=== PATIENT | female | born 1930 | race African-American/Black ===

== ENCOUNTER 2017-08-21 12:38 | Emergency (ER) | payer MEDICARE, BC ==
[~2017-08-21] VITALS: Wt 68.3 kg
[~2017-08-21 12:38] MED LIST: ADV25050 INHALATION; ALBU8.5H3 INH; ATOR40TA68 PO; CLOP75TA27 PO; DILT180C75 PO; EZET10TA3 PO; FERR-55 PO; LORA-441 PO; MULT-552 PO; NEBI5TAB9 PO; POTA-57 PO; POTA20TA81 PO; VALS1TAB80 PO
--- NOTE | 2017-08-21 15:55 | RADRPT ---
PROCEDURE: XR Foot. CLINICAL INDICATION: Generalized pain. TECHNIQUE: Left foot, three views. COMPARISON: None. FINDINGS: Bone mineralization appears decreased. There is no acute fracture or dislocation. Osseous alignment appears maintained. Os peroneum noted. There is mild degenerative changes of the first metatarsal phalangeal joint. There is soft tissue edema about the foot. IMPRESSION: 1. Osteopenia. No acute fracture or dislocation of the left foot. RPTAT: AAEE Lexis Sinclair Physician Date Time Electronically viewed and signed by Lexis Sinclair Physician on 08/21/2017 15:54 PH/
--- NOTE | 2017-08-21 16:22 | ERD ---
ER Documentation Chief Complaint Chief Complaint LEFT FOOT PAIN 2 WEEKS, NO INJURY HPI This 87-year-old female complains of left foot pain for last 2 weeks. The pain started after she is on a plane flight and had a hard landing. She was not standing. Patient is usually confined to a wheelchair but is able to transfer using the restroom and dressing herself. She has a history of left hemiparesis and uses a posterior brace for foot drop. The bleeding or redness of the skin. The pain is on the lateral aspect of the distal fifth metatarsal. ROS All systems reviewed and are negative except as per history of present illness. Medications Home Meds Reported Medications Salmeterol Xinaf/Fluticasone* (Advair*) 250-50 Diskus Inhaler, 1 INH INHALATION BID, #1 INHALER 10/28/15 Albuterol Sulfate* (Proair HFA*) 8.5 Gm Hfa.aer.ad, 2 PUFF INH Q4, #1 INHALER 10/28/15 Lorazepam* (Ativan*) 0.5 Mg Tablet, 0.5 MG PO HS Y for ANXIETY, #30 TAB 10/28/15 Multivitamins* (Once Daily*) 1 Tab Tablet, 1 TAB PO DAILY, TAB 10/28/15 Ferrous Sulfate* (Ferrous Sulfate*) 325 Mg Tablet, 325 MG PO DAILY, TAB 10/28/15 Atorvastatin* (Atorvastatin*) 40 Mg Tablet, 40 MG PO QHS, #30 TAB 10/28/15 Diltiazem Hcl* (Cardizem CD*) 180 Mg Cap.sr.24h, 180 MG PO DAILY, #30 CAP 10/28/15 Clopidogrel Bisulfate (Clopidogrel) 75 Mg Tablet, 75 MG PO DAILY, #30 TAB 10/28/15 Potassium Chloride* (Klor-Con*) 20 Meq Tabsr, 30 MEQ PO HS, TAB.SA 10/28/15 Potassium Chloride (Klor-Con M20) 20 Meq Tab.prt.sr, 20 MEQ PO 10/28/15 Valsartan-Hydrochlorothiazide (Valsartan-HCTZ) 320-12.5 Mg Tablet, 1 TAB PO DAILY, #30 TAB 10/28/15 Nebivolol* (Bystolic*) 5 Mg Tab, 5 MG PO DAILY, #30 TAB 10/28/15 Ezetimibe* (Zetia*) 10 Mg Tablet, 10 MG PO DAILY, TAB 10/28/15 Allergies Allergies: Coded Allergies: No Known Drug Allergies (Verified Allergy, Unknown, 10/28/15) PMhx/Soc History of Surgery: Yes (breast ca 2012) Anesthesia Reaction: No Hx Neurological Disorder: Yes Hx Respiratory Disorders: Yes (ashtma) Hx Cardiac Disorders: Yes Hx Psychiatric Problems: No Hx Miscellaneous Medical Probl: Yes (gastritis w/erosions, sigmd diverticulosis ) Hx Alcohol Use: No Hx Substance Use: No Hx Tobacco Use: No Physical Exam Vitals Vital Signs Date Time Temp Pulse Resp B/P Pulse Ox O2 Delivery O2 Flow Rate FiO2 08/21/17 12:41 99.2 81 17 171/84 98 Physical Exam Const: [] There are, [id number], pleasant. Head: Atraumatic Eyes: Normal Conjunctiva ENT: Normal External Ears, Nose and Mouth. Neck: Full range of motion..~ No meningismus. Resp: Clear to auscultation bilaterally Cardio: Regular rate and rhythm, no murmurs Abd: Soft, non tender, non distended. Normal bowel sounds Skin: No petechiae or rashes Back: No midline or flank tenderness Ext: No cyanosis, or edema tenderness distally on the left fifth metatarsal. No erythema, warmth, bleeding or deformities. CAP Refill is less than 2 seconds and no appreciable deficits. Neur: Awake and alert Psych: Normal Mood and Affect Procedures/MDM X-ray left foot 3V Interpreted by me: Bones: [No fracture] Joints: [No dislocation] Foreign body: [None] impression-osteopenia without fracture dislocation. Patient presents with left foot pain after minimal trauma 2 weeks ago without evidence of cellulitis, fracture, dislocation, ischemia or deficits. She may have a contusion. She will be discharged home with orthopedic and primary care follow-up and return precautions for redness, fevers, new worsening symptoms. She should return sooner for worsening redness, fevers, new worsening symptoms or primary care doctor and orthopedist as directed. The patient was stable with no new complaints during the ER course. Clinically, there is no current evidence to suggest meningitis, sepsis, acute abdomen, pneumonia, acute coronary syndrome, pulmonary embolism, or any other emergent condition appearing to require further evaluation or hospitalization. The patient should certainly return for any new or worsening symptoms per the aftercare instructions. They should otherwise follow-up with her primary care doctor for reevaluation this week. Departure Diagnosis: Primary Impression: Injury of foot Encounter type: initial encounter Laterality: left Qualified Code: S99.922A - Injury of left foot, initial encounter Condition: Stable Patient Instructions: Contusion, Foot Referrals: MELISSA CALHOUN MD Additional Instructions: X-ray read as normal. Likely contusion. See primary doctor and orthopedist for pain next week. Recheck sooner for fevers, redness, new symptoms. KAMILAH ALMANZAR MD Aug 21, 2017 16:22
== END 2017-08-21 16:47 | disposition home or self-care (01) ==
LOC: FTE 12:38
DX: S99.922A Unspecified injury of left foot, initial encounter (principal); J45.909 Unspecified asthma, uncomplicated; X58.XXXA Exposure to other specified factors, initial encounter; Y92.9 Unspecified place or not applicable; Z85.3 Personal history of malignant neoplasm of breast

== ENCOUNTER 2018-11-12 20:31 | Emergency (ER) | payer BC, MEDICARE, OTHER ==
[~2018-11-12] VITALS: Ht 149.9 cm; Wt 64.6 kg
[~2018-11-12 20:31] MED LIST changes: -ALBU8.5H3 INH; +ALBU8.5H8 INH; +DILT180C72 PO; -DILT180C75 PO; -EZET10TA3 PO; +EZET10TA31 PO; -POTA20TA81 PO; +POTA20TA9 PO
[2018-11-12 21:28] VITALS: Ht 149.9 cm; Wt 64.6 kg
[2018-11-12] MEDS ORDERED: SOD CHLORIDE 0.9% 500 ML IV STA (22:51)
--- NOTE | 2018-11-12 23:47 | ERD ---
ER Documentation Chief Complaint Chief Complaint weakness & abnormal BMs, hypertensive, too; hx hernias,CA,CVA HPI 88-year-old female with a history of hypertension and stroke presenting to the ER complaining of abnormal bowel movements for the past few days. She states that her bowel movements are loose. She is having it once a day. Mckeon colored. No associated abdominal pain, nausea, vomiting, yellowing of skin, or change in urination or urine color. She otherwise feels well without fevers or chills. She was just concerned about the loose stools so that is why she is here today. ROS All systems reviewed and are negative except as per history of present illness. Medications Home Meds Reported Medications Salmeterol Xinaf/Fluticasone* (Advair*) 250-50 Diskus Inhaler, 1 INH INHALATION BID, #1 INHALER 10/28/15 Albuterol Sulfate* (Proair HFA*) 8.5 Gm Hfa.aer.ad, 2 PUFF INH Q4, #1 INHALER 10/28/15 Lorazepam* (Ativan*) 0.5 Mg Tablet, 0.5 MG PO HS PRN for ANXIETY, #30 TAB 10/28/15 Multivitamins* (Once Daily*) 1 Tab Tablet, 1 TAB PO DAILY, TAB 10/28/15 Ferrous Sulfate* (Ferrous Sulfate*) 325 Mg Tablet, 325 MG PO DAILY, TAB 10/28/15 Atorvastatin* (Atorvastatin*) 40 Mg Tablet, 40 MG PO QHS, #30 TAB 10/28/15 Diltiazem Hcl* (Cardizem CD*) 180 Mg Cap.sr.24h, 180 MG PO DAILY, #30 CAP 10/28/15 Clopidogrel Bisulfate (Clopidogrel) 75 Mg Tablet, 75 MG PO DAILY, #30 TAB 10/28/15 Potassium Chloride* (Klor-Con*) 20 Meq Tabsr, 30 MEQ PO HS, TAB.SA 10/28/15 Potassium Chloride (Klor-Con M20) 20 Meq Tab.prt.sr, 20 MEQ PO 10/28/15 Valsartan-Hydrochlorothiazide (Valsartan-HCTZ) 320-12.5 Mg Tablet, 1 TAB PO DAILY, #30 TAB 10/28/15 Nebivolol* (Bystolic*) 5 Mg Tab, 5 MG PO DAILY, #30 TAB 10/28/15 Ezetimibe* (Zetia*) 10 Mg Tablet, 10 MG PO DAILY, TAB 10/28/15 Allergies Allergies: Coded Allergies: No Known Drug Allergies (Verified Allergy, Unknown, 10/28/15) PMhx/Soc History of Surgery: Yes (breast ca 2013, hysterectomy) Anesthesia Reaction: No Hx Neurological Disorder: Yes Hx Respiratory Disorders: Yes (asthma) Hx Cardiac Disorders: Yes (htn, CAD) Hx Psychiatric Problems: No Hx Miscellaneous Medical Probl: Yes (gastritis w/erosions, sigmd diverticulosis) Hx Alcohol Use: No Hx Substance Use: No Hx Tobacco Use: No Smoking Status: Never smoker FmHx Family History: No diabetes Physical Exam Vitals Vital Signs Date Temp Pulse Resp B/P (MAP) Pulse Ox O2 O2 Flow FiO2 Time Delivery Rate 11/12/18 98.8 97 18 199/97 96 21:28 (131) Physical Exam Const: No acute distress, well-appearing, nontoxic Head: Atraumatic Eyes: Normal Conjunctiva, no scleral icterus ENT: Normal External Ears, Nose and Mouth. Neck: Full range of motion. No meningismus. Resp: Clear to auscultation bilaterally Cardio: Regular rate and rhythm, no murmurs Abd: Soft, non tender, non distended. No rebound or guarding. No masses. No hepatosplenomegaly. Normal bowel sounds Skin: No jaundice. No petechiae or rashes Back: No midline or flank tenderness Ext: No cyanosis, or edema Neur: Awake and alert Psych: Normal Mood and Affect Result Diagram: 11/12/186 11/12/18 2226 Results 24 hrs Laboratory Tests Test 11/12/18 22:26 White Blood Count 9.8 10^3/ul Red Blood Count 4.60 10^6/ul Hemoglobin 14.6 g/dl Hematocrit 44.8 % Mean Corpuscular Volume 97.4 fl Mean Corpuscular Hemoglobin 31.7 pg Mean Corpuscular Hemoglobin Concent 32.6 g/dl Red Cell Distribution Width 14.1 % Platelet Count 286 10^3/UL Mean Platelet Volume 10.1 fl Immature Granulocytes % 0.600 % Neutrophils % 83.5 % Lymphocytes % 8.3 % Monocytes % 6.1 % Eosinophils % 1.1 % Basophils % 0.4 % Nucleated Red Blood Cells % 0.0 /100WBC Immature Granulocytes # 0.060 10^3/ul Neutrophils # 8.2 10^3/ul Lymphocytes # 0.8 10^3/ul Monocytes # 0.6 10^3/ul Eosinophils # 0.1 10^3/ul Basophils # 0.0 10^3/ul Nucleated Red Blood Cells # 0.0 10^3/ul Sodium Level 144 mmol/L Potassium Level 4.4 mmol/L Chloride Level 108 mmol/L Carbon Dioxide Level 24 mmol/L Anion Gap 12 Blood Urea Nitrogen 19 mg/dl Creatinine 1.14 mg/dl Est Glomerular Filtrat Rate mL/min mL/min Glucose Level 124 mg/dl Calcium Level 9.9 mg/dl Total Bilirubin 0.1 mg/dl Direct Bilirubin 0.00 mg/dl Indirect Bilirubin 0.1 mg/dl Aspartate Amino Transf (AST/SGOT) 26 IU/L Alanine Aminotransferase (ALT/SGPT) 18 IU/L Alkaline Phosphatase 110 IU/L Total Protein 7.4 g/dl Albumin 4.2 g/dl Globulin 3.20 g/dl Albumin/Globulin Ratio 1.31 Lipase 99 U/L Current Medications Medications Dose Sig/Sarwat Start Time Status Last (Trade) Ordered Route PRN Stop Time Admin Dose Reason Admin Sodium 500 ml @ Q1H STAT 11/12/18 11/12/18 Chloride 500 mls/hr IV 22:51 23:25 11/12/18 23:50 Procedures/MDM EMERGENT LABS AND DIAGNOSTIC STUDIES: Lab Results above were reviewed and interpreted by me. CBC: no anemia or evidence of infection CMP: Mild creatinine elevation, no evidence of electrolyte abnormality, renal failure, hypoglycemia, liver failure, or biliary obstruction Lipase: no evidence of pancreatitis Initial Nursing notes reviewed. Previous Medical Records requested via the Electronic Health Record. EMERGENCY DEPARTMENT COURSE / MEDICAL DECISION MAKING: Patient is presenting with loose stools that are mckeon in color. Vitals are stable. She was initially hypertensive when she arrived but her hypertension improved without intervention. As she does not have any pain on exam, initially labs were done and did not show any evidence of liver failure, liver disease, biliary obstruction, or pancreatitis. I feel the patient does not require imaging at this time as she is completely asymptomatic otherwise. I recommended she start using fiber supplements daily. If her symptoms do not improve or continue, I recommended follow-up with her primary care doctor within the next week. Return precautions were discussed. She was encouraged to return for any worsening symptoms. Patient's blood pressure was elevated (>120/80) but appears stable without evidence of hypertensive emergency or urgency. The patient was counseled about the risks of hypertension and urged to pursue outpatient monitoring and therapy within a week with their primary care physician. Departure Diagnosis: Primary Impression: Loose stools Condition: Stable Patient Instructions: Diarrhea, Unk Cause (Adult) Report Pendg Additional Instructions: Make an appointment with your primary care doctor within the next 3 days. If any of your symptoms worsen, return to the ER for reevaluation. MORTEZA RODRIGUEZ MD Nov 12, 2018 23:47
[2018-11-12 23:50] VITALS: BP 155/88; PULSE 73; RESP 18
== END 2018-11-12 23:50 | disposition home or self-care (01) ==
LOC: E/R 20:31
DX: R19.7 Diarrhea, unspecified (principal); R40.2142 Coma scale, eyes open, spontaneous, at arrival to emergency department; R40.2362 Coma scale, best motor response, obeys commands, at arrival to emergency department; R40.2252 Coma scale, best verbal response, oriented, at arrival to emergency department; I10 Essential (primary) hypertension; I25.10 Atherosclerotic heart disease of native coronary artery without angina pectoris; J45.909 Unspecified asthma, uncomplicated; Z85.3 Personal history of malignant neoplasm of breast
CPT/HCPCS: 80053; 83690; 85025; 99284; J7040

== ENCOUNTER 2018-11-18 08:24 | Emergency (ER) | payer BC, MEDICARE ==
[~2018-11-18] VITALS: Ht 157.5 cm; Wt 64.6 kg
[~2018-11-18 08:24] MED LIST changes: -FERR-55 PO
[2018-11-18 08:31] VITALS: Ht 157.5 cm; Wt 64.6 kg
[2018-11-18] MEDS ORDERED: NEBI5TAB9 PO (09:16)
[2018-11-18] MEDS ORDERED: VALS1TAB82 PO (09:16)
[2018-11-18] MEDS ORDERED: HYDR-3672 PO (09:16)
[2018-11-18] MEDS ORDERED: LANS30CA47 PO (09:18)
[2018-11-18] MEDS ORDERED: MULTI PO (09:18)
[2018-11-18] MEDS ORDERED: MAGN400T28 PO (09:18)
--- NOTE | 2018-11-18 10:52 | ERD ---
ER Documentation Chief Complaint Chief Complaint C/O ABD. PAIN ON AND OFF FOR 3 WEEKS; SEEN HERE ON THURSDAY FOR SAME HPI This is a 88-year-old female presents to the emergency room for evaluation of intermittent abdominal pain. The patient states that her abdominal pain has been on and off for the past 3 weeks. She states that she was seen here in the hospital earlier this week and was had diarrhea and was evaluated and discharged home. She states that she does have some intermittent abdominal pain located in the midportion of the abdomen with no radiation and no associated nausea, vomiting, chest pain, shortness of breath or diaphoresis. ROS All systems reviewed and are negative except as per history of present illness. Medications Home Meds Reported Medications Multivitamins* (Theragran*) 1 Tab Tab, 1 TAB PO DAILY, TAB 11/18/18 Magnesium Oxide* (Magnesium Oxide*) 400 Mg Tablet, 400 MG PO BID, TAB 11/18/18 Lansoprazole* (Prevacid*) 30 Mg Capsule.dr, 30 MG PO BID, CAP 11/18/18 Nebivolol* (Bystolic*) 5 Mg Tab, 5 MG PO BID, #30 TAB 11/18/18 Hydralazine Hcl* (Hydralazine Hcl*) 50 Mg Tab, 100 MG PO BID, #180 TAB 11/18/18 Valsartan-Hydrochlorothiazide (Valsartan-HCTZ) 320-25 Mg Tablet, 1 TAB PO DAILY, #30 TAB 11/18/18 Salmeterol Xinaf/Fluticasone* (Advair*) 250-50 Diskus Inhaler, 1 INH INHALATION BID, #1 INHALER 10/28/15 Albuterol Sulfate* (Proair HFA*) 8.5 Gm Hfa.aer.ad, 2 PUFF INH Q4, #1 INHALER 10/28/15 Lorazepam* (Ativan*) 0.5 Mg Tablet, 0.5 MG PO HS PRN for ANXIETY, #30 TAB 10/28/15 Multivitamins* (Once Daily*) 1 Tab Tablet, 1 TAB PO DAILY, TAB 10/28/15 Atorvastatin* (Atorvastatin*) 40 Mg Tablet, 40 MG PO QHS, #30 TAB 10/28/15 Diltiazem Hcl* (Cardizem CD*) 180 Mg Cap.sr.24h, 180 MG PO DAILY, #30 CAP 10/28/15 Clopidogrel Bisulfate (Clopidogrel) 75 Mg Tablet, 75 MG PO DAILY, #30 TAB 10/28/15 Potassium Chloride* (Klor-Con*) 20 Meq Tabsr, 30 MEQ PO HS, TAB.SA 10/28/15 Potassium Chloride (Klor-Con M20) 20 Meq Tab.prt.sr, 20 MEQ PO 10/28/15 Ezetimibe* (Zetia*) 10 Mg Tablet, 10 MG PO DAILY, TAB 10/28/15 Discontinued Reported Medications Valsartan-Hydrochlorothiazide (Valsartan-HCTZ) 320-12.5 Mg Tablet, 1 TAB PO DAILY, #30 TAB 10/28/15 Nebivolol* (Bystolic*) 5 Mg Tab, 5 MG PO DAILY, #30 TAB 10/28/15 Ferrous Sulfate* (Ferrous Sulfate*) 325 Mg Tablet, 325 MG PO DAILY, TAB 10/28/15 Allergies Allergies: Coded Allergies: No Known Drug Allergies (Verified Allergy, Unknown, 10/28/15) PMhx/Soc History of Surgery: Yes (breast ca 2013, hysterectomy) Anesthesia Reaction: No 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) Hx Respiratory Disorders: Yes (asthma, COPD) Hx Cardiac Disorders: Yes (htn, CAD) Hx Psychiatric Problems: No Hx Miscellaneous Medical Probl: Yes (gastritis w/erosions, sigmd diverticulosis) Hx Alcohol Use: No Hx Substance Use: No Hx Tobacco Use: No Smoking Status: Unknown if ever smoked Physical Exam Vitals Vital Signs Date Temp Pulse Resp B/P (MAP) Pulse Ox O2 O2 Flow FiO2 Time Delivery Rate 11/18/18 97.6 80 18 173/80 95 08:31 (111) Physical Exam INITIAL VITAL SIGNS: Reviewed by me GENERAL: The patient is well developed and appropriate for usual state of health in no apparent distress HEENT: Pupils equal, round, and reactive to light. EOMI. There is no scleral icterus. NECK: C-spine is soft and supple, there is no meningismus. There is no cervical lymphadenopathy. LUNGS: Clear to auscultation bilaterally. There are no rales, wheezes or rhonchi. HEART: Regular rate and rhythm, no murmurs, clicks, rubs or gallops. ABDOMEN: Soft, non-tender, non-distended. There are bowel sounds in all four quadrants. No rebound or guarding. EXTREMITIES: There is no peripheral cyanosis or edema. No focal swelling or erythema. NEUROLOGICAL: The patient moves all four extremities with 5/5 strength. Cranial nerves II - XII are intact. Normal gait. Alert and oriented SKIN: There is no apparent rash or petechiae. HEME/LYMPHATIC: There is no evidence of excessive bruising or lymphedema. PSYCHIATRIC: The patient does not appear anxious or depressed. Result Diagram: 11/18/1891211/18/18912 Results 24 hrs Laboratory Tests Test 11/18/18 09:13 White Blood Count 8.5 10^3/ul Red Blood Count 4.47 10^6/ul Hemoglobin 14.3 g/dl Hematocrit 43.3 % Mean Corpuscular Volume 96.9 fl Mean Corpuscular Hemoglobin 32.0 pg Mean Corpuscular Hemoglobin Concent 33.0 g/dl Red Cell Distribution Width 13.9 % Platelet Count 265 10^3/UL Mean Platelet Volume 9.9 fl Immature Granulocytes % 0.400 % Neutrophils % 83.1 % Lymphocytes % 7.0 % Monocytes % 7.7 % Eosinophils % 1.4 % Basophils % 0.4 % Nucleated Red Blood Cells % 0.0 /100WBC Immature Granulocytes # 0.030 10^3/ul Neutrophils # 7.1 10^3/ul Lymphocytes # 0.6 10^3/ul Monocytes # 0.7 10^3/ul Eosinophils # 0.1 10^3/ul Basophils # 0.0 10^3/ul Nucleated Red Blood Cells # 0.0 10^3/ul Sodium Level 145 mmol/L Potassium Level 4.2 mmol/L Chloride Level 108 mmol/L Carbon Dioxide Level 29 mmol/L Anion Gap 8 Blood Urea Nitrogen 19 mg/dl Creatinine 1.17 mg/dl Est Glomerular Filtrat Rate mL/min mL/min Glucose Level 126 mg/dl Calcium Level 10.0 mg/dl Total Bilirubin 0.1 mg/dl Direct Bilirubin 0.00 mg/dl Indirect Bilirubin 0.1 mg/dl Aspartate Amino Transf (AST/SGOT) 24 IU/L Alanine Aminotransferase (ALT/SGPT) 21 IU/L Alkaline Phosphatase 122 IU/L Total Protein 7.0 g/dl Albumin 4.1 g/dl Globulin 2.90 g/dl Albumin/Globulin Ratio 1.41 Lipase 84 U/L Procedures/MDM This 88-year-old female presents to the emergency room for evaluation of intermittent abdominal pain. On my exam the patient is afebrile, nontoxic-appearing, hemodynamically stable. This patient had lab work on her lab work is normal. Her abdominal exam is soft and benign. She is got bowel sounds in all 4 quadrants. The patient's lab work is within normal at this time and given her nonfocal examination I do not feel the need to images patient. The patient states she is feeling better and would like to go home. I have advised her that she continues to have abdominal pain she is to return immediately to the emergency room for a CAT scan and admission. She states she will do that, states that she also has a family court registrar Dr. Smith that she follows up with. Differential diagnoses entertained was broad with potential high acuity. Patient has been evaluated for appendicitis, cholecystitis, and other high risk medical and surgical causes of abdominal pain. Ultimately the patient's evaluation is nondiagnostic. Based on the patient's lack of risk factors, as well as the patient's clinical, laboratory, and imaging data, the patient appears to be low risk for these high risk causes of abdominal pain. Departure Diagnosis: Primary Impression: Abdominal pain Additional Impression: Renal insufficiency Condition: Stable YANETH DAWN DO Nov 18, 2018 10:52
[2018-11-18 12:17] VITALS: BP 129/62; PULSE 65; RESP 18
== END 2018-11-18 12:20 | disposition home or self-care (01) ==
LOC: E/R 08:24
DX: R10.9 Unspecified abdominal pain (principal); I10 Essential (primary) hypertension; I25.10 Atherosclerotic heart disease of native coronary artery without angina pectoris; N28.9 Disorder of kidney and ureter, unspecified; Z86.73 Personal history of transient ischemic attack (TIA), and cerebral infarction without residual deficits; Z79.01 Long term (current) use of anticoagulants; Z85.3 Personal history of malignant neoplasm of breast
CPT/HCPCS: 36415; 80053; 81003; 83690; 85025; 99283